=== PATIENT | female | born 1950 | race Caucasian/White ===

== ENCOUNTER → 2016-10-15 | Outpatient (CLI) | payer OTHER ==
[~2016-10-15] MED LIST: CARV12.52 PO; CYM30 PO; CZR50 PO; GLC500 PO; LPT/20 PO; TRIA37.5 PO
[2016-10-15 11:27] LABS: CHOLESTEROL/HDL RATIO 3.1
== END | disposition home or self-care (01) ==
LOC: C.LABBC 08:29
PROVIDERS: ATTEND Physician Assistant Medical
DX: Z11.59 Encounter for screening for other viral diseases (principal); E78.00 Pure hypercholesterolemia, unspecified

== ENCOUNTER → 2017-03-25 | Outpatient (CLI) | payer OTHER ==
[2017-03-25 13:08] LABS: HEMATOCRIT 37.9 % (37-47); MEAN CELL VOLUME 93.1 fL (80-100); MEAN CORPUSCULAR HEMOGLOBIN 31.9 pg (25-34); MEAN CORPUSCULAR HGB CONC 34.3 g/dl (32-36); MEAN PLATELET VOLUME 9.3 fL (7.4-10.4); PLATELET COUNT 243 K/uL (130-400); RED BLOOD COUNT 4.07 M/uL (4.2-5.4); WHITE BLOOD COUNT 3.84 K/uL (4.8-10.8)
[2017-03-25 13:29] LABS: ALT/SGPT 26 U/L (12-78); AST/SGOT 17 U/L (15-37); BLOOD UREA NITROGEN 20 mg/dl (7-18); BUN/CREATININE RATIO 20.4 (10-20); CALCIUM 9.1 mg/dl (8.5-10.1); CARBON DIOXIDE 28 mmol/L (21-32); CHLORIDE 105 mmol/L (98-107); CHOLESTEROL 261 mg/dl (0-200); CREATININE 0.99 mg/dl (0.60-1.20); GLUCOSE 145 mg/dl (70-99); POTASSIUM 3.8 mmol/L (3.5-5.1); SODIUM 138 mmol/L (136-145); TRIGLYCERIDES 231 mg/dl (0-150); VERY LOW DENSITY LIPOPROT CALC 46 mg/dl
[2017-03-25 13:40] LABS: ALB/GLOB RATIO 1.1 (0.9-2); ALKALINE PHOSPHATASE 78 U/L (45-117); HDL CHOLESTEROL 52 mg/dl; LDL CHOLESTEROL CALCULATED 163 mg/dl
[2017-03-25 14:06] LABS: BASO % 0.8 %; BASO ABS # 0.03 K/uL (0-0.2); COMPLETE YES; IG% 0.3 %; LYMPH % 51.6 %; LYMPH ABS # 1.98 K/uL (1.2-3.4); MONO % 10.2 %; NEUT % 31.1 %
[2017-03-26 04:34] LABS: ESTIMATED AVERAGE GLUCOSE 131 mg/dl; HA1C FLAG Normal (Normal)
== END | disposition home or self-care (01) ==
LOC: C.LABBC 09:14
PROVIDERS: ATTEND Internal Medicine
DX: Z00.00 Encounter for general adult medical examination without abnormal findings (principal); I10 Essential (primary) hypertension; E78.00 Pure hypercholesterolemia, unspecified; R80.9 Proteinuria, unspecified; R73.03 Prediabetes